=== PATIENT | male | born 1955 | race Caucasian/White ===

== ENCOUNTER 2019-10-29 10:01 | Emergency (ER) | payer MEDICARE, OTHER ==
[~2019-10-29] VITALS: Ht 177.8 cm; Wt 83.1 kg
[~2019-10-29 10:01] MED LIST: DOCU-131 PO; OXYC5CAP2 PO
[2019-10-29 10:03] VITALS: BP 118/77
--- NOTE | 2019-10-29 10:28 | NUR ---
FANTASMA PA AT BEDSIDE FOR EVALUATION AND DRAINAGE OF ABCESS
--- NOTE | 2019-10-29 10:47 | NUR ---
DISCHARGE INSTRUCTIONS REVIEWED
== END 2019-10-29 10:54 | disposition home or self-care (01) ==
LOC: ED 10:50
DX: K04.7 Periapical abscess without sinus (principal); K02.9 Dental caries, unspecified; Z88.6 Allergy status to analgesic agent
CPT/HCPCS: 41800; 99284

== ENCOUNTER → 2020-06-08 | Outpatient (CLI) | payer MEDICARE | END | disposition home or self-care (01) | LOC: STAR 08:06 | PROVIDERS: ATTEND Orthopaedic Surgery | DX: Z01.818 Encounter for other preprocedural examination (principal); M19.011 Primary osteoarthritis, right shoulder; M25.511 Pain in right shoulder; R00.1 Bradycardia, unspecified; Z20.822 Contact with and (suspected) exposure to COVID-19 | CPT/HCPCS: 87081; 87635; 93005 ==